=== PATIENT | male | born 1995 | race Caucasian/White ===

== ENCOUNTER 2019-12-11 15:05 | Emergency (ER) | payer OTHER ==
[~2019-12-11] VITALS: Ht 175.3 cm; Wt 86.4 kg
[2019-12-11 15:19] VITALS: TEMP 97.5
[2019-12-11] MEDS ORDERED: PROAIR HFA0.09 MG/AC IH (16:07)
[2019-12-11] MEDS ORDERED: ALBUTEROL0.83 MG/ML IH (16:07)
[2019-12-11] MEDS ORDERED: PREDNISONE20 MG PO (16:07)
[2019-12-11] MEDS ORDERED: ZITHROMAX Z PA250 MG PO (16:07)
[2019-12-11 16:31] VITALS: BP 128/85; PULSE 85
== END 2019-12-11 16:33 | disposition home or self-care (01) ==
LOC: COL.ER 15:05
DX: J20.9 Acute bronchitis, unspecified (principal); J45.909 Unspecified asthma, uncomplicated; F17.200 Nicotine dependence, unspecified, uncomplicated; Z20.828 Contact with and (suspected) exposure to other viral communicable diseases; Z77.29 Contact with and (suspected) exposure to other hazardous substances